=== PATIENT | female | born 1950 | race Caucasian/White ===

== ENCOUNTER 2019-04-26 12:22 | Inpatient (IN) | payer OTHER ==
[~2019-04-26] VITALS: Ht 152.4 cm; Wt 69.7 kg
[2019-04-26] MEDS ORDERED: PYRI50TA13 PO (12:40)
[2019-04-26] MEDS ORDERED: MAGOX PO (12:40)
[2019-04-26] MEDS ORDERED: AMLO5TAB9 PO (12:40)
[2019-04-26] MEDS ORDERED: BRIM15DR2 OU (12:40)
[2019-04-26] MEDS ORDERED: INSNOV SQ (12:40)
[2019-04-26] MEDS ORDERED: SENN-176 PO (12:40)
[2019-04-26] MEDS ORDERED: CHL25 PO (12:40)
[2019-04-26] MEDS ORDERED: MULT1TAB66 PO (12:40)
[2019-04-26] MEDS ORDERED: NAPR250T4 PO (12:40)
[2019-04-26] MEDS ORDERED: METF-960 PO (12:40)
[2019-04-26] MEDS ORDERED: ACET1TAB12 PO (12:40)
[2019-04-26] MEDS ORDERED: DULO20CA30 PO (12:40)
[2019-04-26] MEDS ORDERED: LORA10TA7 PO (12:40)
[2019-04-26] MEDS ORDERED: DULA1.5P SQ (12:40)
[2019-04-26] MEDS ORDERED: ATOR40TA28 PO (12:40)
[2019-04-26] MEDS ORDERED: IBUP-2071 PO (12:40)
[2019-04-26] MEDS ORDERED: ALBU8.5H8 IH (12:40)
[2019-04-26] MEDS ORDERED: CHOL100018 PO (12:40)
[2019-04-26 12:44] LABS: GLUCOSE,POINT OF CARE 249 MG/DL (70-110)
[2019-04-26] MEDS ORDERED: SODIUM CHLORIDE 0.9% 1,000 ML IV ONE ×2 (13:00→15:00)
[2019-04-26] MEDS ORDERED: DiphenhydrAMINE HCL 50 MG/ML VIAL IVP ONE (13:00)
[2019-04-26] MEDS ORDERED: DEXAMETHASONE SOD PHOS 4 MG/ML 5 ML VIAL IVP ONE (13:00)
[2019-04-26] MEDS ORDERED: METOCLOPRAMIDE HCL 5 MG/ML 2 ML VIAL IVP ONE (13:00)
[2019-04-26] MEDS ORDERED: ACETAMINOPHEN 500 MG TABLET PO ONE (13:00)
[2019-04-26] MEDS ORDERED: INSLAN SQ (13:09)
[2019-04-26 13:43] LABS: BASOPHILS % (AUTO) 0.2 % (0.0-2.0); EOSINOPHILS % (AUTO) 0.3 % (1.0-6.0); HEMATOCRIT 35.2 % (36-46); HEMOGLOBIN 12.2 g/dL (12.0-16.0); LYMPHOCYTES # (AUTO) 1.5 K/uL (1.0-4.8); LYMPHOCYTES % (AUTO) 17.1 % (22.0-44.0); MEAN CORPUSCULAR HEMOGLOBIN 31.9 pg (26.0-34.0); MEAN CORPUSCULAR HGB CONC 34.8 G/dL (31.0-37.0); MEAN CORPUSCULAR VOLUME 92 fL (80-100); MONOCYTES # (AUTO) 0.7 K/uL (0.1-1.0); MONOCYTES % (AUTO) 8.1 % (2.0-9.0); NEUTROPHILS # (AUTO) 6.5 K/uL (1.8-7.7); NEUTROPHILS % (AUTO) 74.3 % (40.0-70.0); PLATELET COUNT (AUTO) 456 K/uL (150-450); RED BLOOD CELL COUNT(AUTO) 3.84 MIL/uL (4.00-5.20); RED CELL DISTRIBUTION WIDTH 12.6 % (11.5-14.5)
[2019-04-26 13:54] LABS: CALCIUM, TOTAL 9.4 mg/dL (8.8-10.5); CREATININE 1.29 mg/dL (0.60-1.30)
[2019-04-26 14:05] LABS: INFLUENZA TYPE A NEGATIVE FOR TYPE A (NEGATIVE); INFLUENZA TYPE B NEGATIVE FOR TYPE B (NEGATIVE)
[2019-04-26] MEDS ORDERED: POTASSIUM CHLORIDE 20 MEQ ER TABLET PO ONE (14:15)
[2019-04-26 14:16] LABS: ALBUMIN 3.3 g/dL (3.4-5.0); BILIRUBIN,TOTAL 0.7 mg/dL (0.1-1.0); TOTAL PROTEIN, SERUM 7.6 g/dL (6.4-8.2)
[2019-04-26] MEDS ORDERED: KETOROLAC TROMETHAMINE 30 MG/ML VIAL IVP ONE (15:00)
[2019-04-26 15:41] LABS: CREATININE 1.23 mg/dL (0.60-1.30)
[2019-04-26 15:42] LABS: CALCIUM, TOTAL 8.6 mg/dL (8.8-10.5)
[2019-04-26 15:44] LABS: POTASSIUM 2.8 mmol/L (3.5-5.1)
[2019-04-26 15:46] LABS: APPEARANCE,URINE CLOUDY (CLEAR); BILIRUBIN,URINE NEGATIVE (NEGATIVE); GLUCOSE, URINE (UA) NEGATIVE (NEGATIVE); KETONES,URINE NEGATIVE (NEGATIVE); LEUKOCYTE ESTERASE ,URINE SMALL (NEGATIVE); NITRATE,URINE NEGATIVE (NEGATIVE); OCCULT BLOOD,URINE NEGATIVE (NEGATIVE); PROTEIN,URINE NEGATIVE (NEGATIVE); UROBILINOGEN,URINE 0.2 mg/dL (<=1.0)
[2019-04-26 16:00] LABS: BACTERIA,URINE Many /HPF (None Seen); RBC,URINE 0-2 /HPF (0-2); SQUAMOUS EPITHELIAL CELL,UR Few /LPF (None Seen)
[2019-04-26] MEDS ORDERED: ACETAMINOPHEN 325 MG TABLET PO PRN ×2 (16:15→16:30)
[2019-04-26] MEDS ORDERED: 0.9% SODIUM CHLORIDE 10 ML SYRINGE IVP PRN (16:15)
[2019-04-26] MEDS ORDERED: ONDANSETRON HCL 4 MG/2 ML VIAL IVP PRN ×2 (16:15→16:30)
[2019-04-26] MEDS: POTASSIUM CHL 10 MEQ/WATER 50 ML IV SCH (16:26)
[2019-04-26] MEDS ORDERED: ALBUTEROL SULFATE HFA 90 MCG/PUFF 8 GM INHALER IH PRN (16:30)
[2019-04-26] MEDS ORDERED: POTASSIUM CHL 20 MEQ/0.9% NS 1,000 ML IV ONE (16:30)
[2019-04-26] MEDS ORDERED: MAGNESIUM SULFATE 4 GM/WATER 100 ML IV PRN (16:30)
[2019-04-26] MEDS ORDERED: ZOLPIDEM TARTRATE 5 MG TABLET PO PRN (16:30)
[2019-04-26] MEDS ORDERED: MAGNESIUM HYDROXIDE SUSPENSION 30 ML UDCUP PO PRN (16:30)
[2019-04-26] MEDS ORDERED: POTASSIUM CHL 10 MEQ/WATER 50 ML IV PRN (16:30)
[2019-04-26] MEDS ORDERED: MORPHINE SULFATE 2 MG/ML SYRINGE IVP PRN (16:30)
[2019-04-26] MEDS ORDERED: INSULIN LISPRO 100 UNITS/ML SQ PRN (16:30)
[2019-04-26] MEDS ORDERED: CefTRIAXone 1 GM/DEXTROSE 50 ML IV ONE (16:30)
[2019-04-26] MEDS ORDERED: MAGNESIUM OXIDE 400 MG TABLET PO PRN (16:30)
[2019-04-26] MEDS ORDERED: BISACODYL 10 MG RECTAL RECTAL SUPPOSITORY PR PRN (16:30)
[2019-04-26] MEDS ORDERED: DEXTROSE 50%-WATER 25 GM/50 ML SYRINGE IVP PRN (16:30)
[2019-04-26] MEDS ORDERED: POTASSIUM CHLORIDE 20 MEQ ER TABLET PO PRN (16:30)
[2019-04-26] MEDS ORDERED: HYDROCODONE/ACETAMINOPHEN 5-325 MG TABLET PO PRN (16:30)
[2019-04-26 16:46] LABS: MAGNESIUM 1.5 mg/dL (1.80-2.40)
[2019-04-26 17:57] VITALS: BP 111/58
[2019-04-26 20:03] VITALS: BP 118/59
[2019-04-26] MEDS: MetFORMIN HCL 500 MG TABLET PO SCH (22:33)
[2019-04-26] MEDS: DOCUSATE SODIUM 100 MG CAPSULE PO SCH (22:34)
[2019-04-26] MEDS: BRIMONIDINE TARTRATE 0.1% 5 ML OPHTHALMIC SOLUTION OU SCH (22:35)
[2019-04-26] MEDS ORDERED: INSULIN LISPRO 100 UNITS/ML SQ ONE (22:55)
[2019-04-26] MEDS ORDERED: SODIUM CHLORIDE 0.9% 250 ML IV ONE ×2 (23:19→23:42)
[2019-04-27] VITALS (7 sets, daily range): BP systolic 102–128; BP diastolic 51–61
[2019-04-27] MEDS: POTASSIUM CHL 10 MEQ/WATER 50 ML IV SCH ×3 (00:29→03:27)
[2019-04-27] MEDS: HEPARIN SODIUM,PORCINE 5,000 UNITS/ML VIAL SQ SCH ×4 (00:54→23:10)
[2019-04-27] MEDS ORDERED: SODIUM CHLORIDE 0.9% 250 ML IV ONE (03:29)
[2019-04-27] MEDS ORDERED: DEXTROSE 50%-WATER 25 GM/50 ML SYRINGE IVP PRN (06:30)
[2019-04-27] MEDS: INSULIN GLARGINE,HUM.REC.ANLOG 100 UNITS/ML SQ SCH (06:40)
[2019-04-27] MEDS: INSULIN LISPRO 100 UNITS/ML SQ PRN ×4 (06:40→20:44)
[2019-04-27 06:49] LABS: MAGNESIUM 1.4 mg/dL (1.80-2.40)
[2019-04-27] MEDS: MetFORMIN HCL 500 MG TABLET PO SCH ×2 (08:19→17:43)
[2019-04-27] MEDS: ATORVASTATIN CALCIUM 40 MG TABLET PO SCH (08:20)
[2019-04-27] MEDS: DOCUSATE SODIUM 100 MG CAPSULE PO SCH ×2 (08:20→20:44)
[2019-04-27] MEDS: BRIMONIDINE TARTRATE 0.1% 5 ML OPHTHALMIC SOLUTION OU SCH ×2 (08:20→20:44)
[2019-04-27] MEDS: DULoxetine HCL 20 MG CAPSULE PO SCH (08:20)
[2019-04-27] MEDS: PANTOPRAZOLE SODIUM 40 MG DR TABLET PO SCH (08:21)
[2019-04-27] MEDS: AmLODIPine BESYLATE 2.5 MG TABLET PO SCH (08:21)
[2019-04-27] MEDS: PYRIDOXINE HCL 50 MG TABLET PO SCH (08:21)
[2019-04-27] MEDS: CHOLECALCIFEROL (VIT D3) 1,000 UNITS TABLET PO SCH (08:21)
[2019-04-27 08:26] LABS: POTASSIUM 3.7 mmol/L (3.5-5.1)
[2019-04-27] MEDS ORDERED: AmLODIPine BESYLATE 5 MG TABLET PO SCH (09:00)
[2019-04-27] MEDS: MAGNESIUM SULFATE 2 GM/WATER 50 ML IV PRN (10:55)
[2019-04-27 21:25] LABS: GLUCOMETER DEV NAME(LOC) 5S.2A; GLUCOSE,POINT OF CARE 412 MG/DL (70-110)
[2019-04-27] MEDS: SODIUM CHLORIDE 0.9% 1,000 ML IV SCH (23:10)
[2019-04-28 05:20] VITALS: BP 110/47
[2019-04-28] MEDS: INSULIN LISPRO 100 UNITS/ML SQ PRN ×2 (06:10→12:39)
[2019-04-28 06:50] LABS: GLUCOMETER DEV NAME(LOC) 5S.1; GLUCOSE,POINT OF CARE 169 MG/DL (70-110)
[2019-04-28 06:50] LABS: GLUCOMETER DEV NAME(LOC) 5S.1; GLUCOSE,POINT OF CARE 553 MG/DL (70-110)
[2019-04-28 06:50] LABS: GLUCOMETER DEV NAME(LOC) 5S.1; GLUCOSE,POINT OF CARE 231 MG/DL (70-110)
[2019-04-28 06:50] LABS: GLUCOMETER DEV NAME(LOC) 5S.1; GLUCOSE,POINT OF CARE 239 MG/DL (70-110)
[2019-04-28 06:50] LABS: GLUCOMETER DEV NAME(LOC) 5S.1; GLUCOSE,POINT OF CARE 315 MG/DL (70-110)
[2019-04-28 06:55] LABS: BASOPHILS % (AUTO) 0.4 % (0.0-2.0); EOSINOPHILS % (AUTO) 0.7 % (1.0-6.0); HEMATOCRIT 30.3 % (36-46); HEMOGLOBIN 11.2 g/dL (12.0-16.0); LYMPHOCYTES # (AUTO) 2.6 K/uL (1.0-4.8); LYMPHOCYTES % (AUTO) 25.1 % (22.0-44.0); MEAN CORPUSCULAR HEMOGLOBIN 33.6 pg (26.0-34.0); MEAN CORPUSCULAR HGB CONC 36.9 G/dL (31.0-37.0); MEAN CORPUSCULAR VOLUME 91 fL (80-100); MONOCYTES # (AUTO) 0.6 K/uL (0.1-1.0); MONOCYTES % (AUTO) 6.3 % (2.0-9.0); NEUTROPHILS # (AUTO) 6.9 K/uL (1.8-7.7); NEUTROPHILS % (AUTO) 67.5 % (40.0-70.0); PLATELET COUNT (AUTO) 402 K/uL (150-450); RED BLOOD CELL COUNT(AUTO) 3.33 MIL/uL (4.00-5.20); RED CELL DISTRIBUTION WIDTH 12.7 % (11.5-14.5)
[2019-04-28 07:09] LABS: ANION GAP 8 mmol/L (8-16); CALCIUM, TOTAL 8.5 mg/dL (8.8-10.5); CARBON DIOXIDE 27 mmol/L (22-29); CHLORIDE 97 mmol/L (98-107); CREATININE 0.76 mg/dL (0.60-1.30); GLOMERULAR FILTR. RATE CALC > 60 mL/min (>60); GLUCOSE,RANDOM 172 mg/dL (70-110); POTASSIUM 3.7 mmol/L (3.5-5.1); SODIUM SERUM 132 mmol/L (136-145); UREA NITROGEN, BLOOD 20 mg/dL (7-18)
[2019-04-28 07:30] VITALS: BP 119/58
[2019-04-28] MEDS: BRIMONIDINE TARTRATE 0.1% 5 ML OPHTHALMIC SOLUTION OU SCH (08:33)
[2019-04-28] MEDS: PANTOPRAZOLE SODIUM 40 MG DR TABLET PO SCH (08:34)
[2019-04-28] MEDS: DULoxetine HCL 20 MG CAPSULE PO SCH (08:34)
[2019-04-28] MEDS: ATORVASTATIN CALCIUM 40 MG TABLET PO SCH (08:34)
[2019-04-28] MEDS: MetFORMIN HCL 500 MG TABLET PO SCH (08:34)
[2019-04-28] MEDS: HEPARIN SODIUM,PORCINE 5,000 UNITS/ML VIAL SQ SCH (08:34)
[2019-04-28] MEDS: CHOLECALCIFEROL (VIT D3) 1,000 UNITS TABLET PO SCH (08:34)
[2019-04-28] MEDS: PYRIDOXINE HCL 50 MG TABLET PO SCH (08:34)
[2019-04-28] MEDS: DOCUSATE SODIUM 100 MG CAPSULE PO SCH (08:34)
[2019-04-28] MEDS: AmLODIPine BESYLATE 2.5 MG TABLET PO SCH (08:34)
[2019-04-28] MEDS: SODIUM CHLORIDE 0.9% 1,000 ML IV SCH (08:35)
[2019-04-28] MEDS: INSULIN GLARGINE,HUM.REC.ANLOG 100 UNITS/ML SQ SCH (08:43)
[2019-04-28] MEDS: MAGNESIUM SULFATE 2 GM/WATER 50 ML IV PRN (10:44)
[2019-04-28 11:53] VITALS: BP 105/55
[2019-04-28 16:47] LABS: GLUCOMETER DEV NAME(LOC) 5S.1; GLUCOSE,POINT OF CARE 221 MG/DL (70-110)
[2019-04-29 11:44] VITALS: BP 106/44
== END 2019-04-28 15:05 | disposition home or self-care (01) | DRG 641 ==
LOC: EMS 12:25 → 5N 18:20
PROVIDERS: ADMIT Internal Medicine; ATTEND Internal Medicine
DX: E87.6 Hypokalemia (principal); E87.1 Hypo-osmolality and hyponatremia; E11.9 Type 2 diabetes mellitus without complications; J45.909 Unspecified asthma, uncomplicated; E78.5 Hyperlipidemia, unspecified; E55.9 Vitamin D deficiency, unspecified; E87.8 Other disorders of electrolyte and fluid balance, not elsewhere classified; I10 Essential (primary) hypertension; Z88.8 Allergy status to other drugs, medicaments and biological substances
CPT/HCPCS: 70450; 83735; 84132; 84145; 87086; 87804; 93306; 97116; 97161; 97166; 97530; 97535; J0696; J1100; J1200; J1644; J1815; J1885; J2765; J3475; J3480; J7030; J7050